=== PATIENT | male | born 1935 | race Caucasian/White ===

== ENCOUNTER 2016-09-22 09:15 | Inpatient (IN) | payer OTHER ==
[2016-09-10 11:53] LABS: BASOPHILS 0.3 %; BASOPHILS ABSOLUTE 0.03 10/3/uL (0.0-0.16); EOSINOPHILS 2.7 %; EOSINOPHILS ABSOLUTE 0.25 10/3/uL (0.0-0.53); HEMATOCRIT 44.6 % (40.0-51.0); HEMOGLOBIN 15.3 g/dL (13.6-17.8); IMMATURE GRANULOCYTES 0.3 %; IMMATURE GRANULOCYTES ABSOLUTE 0.03 10/3/uL (0.0-0.11); LYMPHOCYTES 21.6 %; LYMPHOCYTES ABSOLUTE 1.99 10/3/uL (0.67-4.30); MEAN CORPUS HGB CONC 34.3 g/dL (32.0-36.0); MEAN CORPUSCULAR HEMOGLOB 31.1 pg (26.0-34.0); MEAN CORPUSCULAR VOLUME 90.7 fL (80-100); MEAN PLATELET VOLUME 10.4 fL (9.2-13.0); MONOCYTES 6.3 %; MONOCYTES ABSOLUTE 0.58 10/3/uL (0.21-1.20); NEUTROPHILS 68.8 %; NEUTROPHILS ABSOLUTE 6.35 10/3/uL (2.02-8.40); PLATELET COUNT 270 10/3/uL (150-400); RBC DISTRIBUTION WIDTH 13.7 % (12.0-16.0); RED CELL COUNT 4.92 10/6/uL (4.7-6.1); WHITE BLOOD CELLS 9.2 10/3/uL (4.5-10.5)
[2016-09-10 11:57] LABS: MANUAL DIFF NO %
[2016-09-10 11:59] LABS: INTERNATIONAL NORMAL RATI 1.3 UNITS (-); PARTIAL THROMBO TIME 28.4 SEC (22.5-37.2); PROTIME (NOT ORD) 16.2 SEC (12.0-14.5)
[2016-09-10 12:04] LABS: ASCORBIC ACID (UR NOT ORDER) NEG (NEG); BILIRUBIN, URINE NEGATIVE (NEG); KETONE, URINE NEGATIVE (NEG); LEUKOCYTE ESTERASE(NOT OR NEG (NEG); WBC (NOT ORDERED) (RFLEX) 1 (0-5)
[2016-09-10 12:10] LABS: ALBUMIN 3.8 G/DL (3.5-5.0); ALKALINE PHOSPHATASE 90 U/L (45-117); BUN (BLOOD UREA NITROGEN) 20 MG/DL (6-23); CALCIUM, SERUM 8.9 MG/DL (8.5-10.4); CHLORIDE, SERUM 109 MMOL/L (96-112); CO2 (CARBON DIOXIDE) 27 MMOL/L (24-34); CREATININE 1.07 MG/DL (0.70-1.30); GFR AFRICAN AMERICAN 76 ML/MIN (>=60); GFR NON AFRICAN AMERICAN 66 ML/MIN (>=60); GLOBULIN 3.9 G/DL (2.5-4.1); GLUCOSE, SERUM 126 MG/DL (60-99); POTASSIUM, SERUM 3.9 MMOL/L (3.5-5.3); SGOT(AST) 12 U/L (5-40); SGPT(ALT) 13 U/L (5-65); SODIUM, SERUM 144 MMOL/L (135-148); TOTAL BILIRUBIN 0.6 MG/DL (0-1.2); TOTAL PROTEIN 7.7 G/DL (6.0-8.5)
--- NOTE | ~2016-09-22 | DS ---
Discharge Summary [facility] [address] [place]. [address] NAME: ROCK RODRIGUEZ : 37 STATUS : DIS IN PAT#: [id number] AGE: 81 ADM/REG DATE : 09/22/16 MR#: [id number] REPORT SERV DATE: 10/06/16 DICTATED BY: SOBEIDA CHENEY DATE: 10/05/16 REPORT STATUS : Draft TRANSCRIBED BY: BRAYAN DATE: 10/05/16 Data Collection from hospitalization DISCHARGE DIAGNOSES: 1. Left hip arthritis. 2. Asthma. CONSULTATIONS: None. PROCEDURES PERFORMED: Left total hip arthroplasty, 09/22/2016. PATHOLOGY: Left femoral head arthroplasty - changes consistent with degenerative joint disease. DISCHARGE MEDICATIONS: Aspirin 325 mg as needed, Colace 100 mg twice a day, Pepcid 20 mg twice a day, ferrous sulfate 300 mg with breakfast and supper, Theragran tablets one tablet with breakfast, Lopressor 25 mg twice a day, vitamin E one unit daily, Coumadin 5 mg as instructed, Tylenol 500 mg every six hours as needed, Mylanta 30 mL as needed, Dulcolax 15 mg as needed, milk of magnesia 30 mL as needed, Zofran 4 mg every four hours as needed, MiraLAX one packet twice a day as needed, Roxicodone 5-10 mg every four hours as needed. CONDITION AT DISCHARGE: Stable. DISPOSITION: The patient was discharged to [facility] at [place] on a regular diet with activities as instructed. He would follow up with Arnie Krause on 10/07/2016 and would follow up with on 11/04/2016. HOSPITAL COURSE: This is a 81-year-old man, who has left hip arthritis. Treatment options were discussed and it was elected to proceed with surgical intervention. He was admitted to the hospital at this time for further evaluation and treatment. Upon admission, he was taken to the operating room where he underwent the above-mentioned procedure. He tolerated this well. There were no complications. On postop day #1, he was up sitting in a bedside chair, FRANCESCA hose were in place. Metoprolol was continued. His blood pressure was controlled. He was evaluated by Occupational Therapy. On postop day #2, he continued to do well. INR level was 1.5. Discharge planning was performed on 09/25/2016. He continued to slowly progress. He had not been able to pass physical therapy. Discharge instructions were given. Due to his improved and stable condition, he was discharged to [facility] with the above-stated instructions. Information collected by: Joyce Garcia I submit the above information as my discharge summary. SUKUMAR/BRAYAN Sobeida Cheney M.D. Discharge Summary [address] [id number] [place]. [address] NAME: ROCK RODRIGUEZ : 37 STATUS : DIS IN PAT#: [id number] AGE: 81 ADM/REG DATE : 09/22/16 MR#: [id number] REPORT SERV DATE: 10/06/16 DICTATED BY: SOBEIDA CHENEY DATE: 10/05/16 REPORT STATUS : Draft TRANSCRIBED BY: BRAYAN DATE: 10/05/16 / [id number] CC: Paula Hankins M.D. [facility]
--- NOTE | ~2016-09-22 | OP ---
Record Of Operation [facility] [address] [place]. [address] NAME: ROCK RODRIGUEZ : 37 STATUS : ADM IN PAT#: [id number] AGE: 81 ADM/REG DATE : 09/22/16 MR#: [id number] REPORT SERV DATE: 09/22/16 DICTATED BY: SOBEIDA CHENEY DATE: 09/22/16 REPORT STATUS : Draft TRANSCRIBED BY: MODL DATE: 09/22/16 DATE OF PROCEDURE: 09/22/2016 PREOPERATIVE DIAGNOSIS: Left hip arthritis. POSTOPERATIVE DIAGNOSIS: Left hip arthritis. PROCEDURE PERFORMED: Left total hip arthroplasty. SURGEON: Sobeida Cheney M.D. COUPLES THERAPIST: Jacque Melgar. ANESTHESIA: General with local infusion. PROCEDURE IN DETAIL: The patient is clearly identified and after obtaining informed consent is brought to the operating room at [facility] where here the patient is induced under general anesthesia and subsequently placed in the left lateral decubitus position. This concluded, the thigh and flank are prepped and draped in the usual manner. A time-out procedure successfully performed and after registering the knee and marking the anatomy through an approximately 4.5 incision, the skin is divided. The fascial planes are divided. The lateral fascia then is divided. Hemostasis is obtained with electrocautery and a Charnley retractor is applied. The piriformis is identified, tagged, divided, and retracted over the sciatic nerve felt deep in the wound. At which point, the mini approach to the hip is formed with dividing the capsule in a mini approach with a cuff of tissues remaining at the femoral side to accomplish repair at the conclusion of the case. Dislocating the hip, end-stage arthritic changes are noted. The tissue surrounding the femoral neck are protected with the Hohmann retractor and the femoral neck cut is made according to preoperative templating. This concluded, the femoral head is removed. The acetabulum is exposed. The labral and fluvial tissues are removed and reaming is performed. Subsequently trialing with the appropriate trial, the permanent acetabular components placed with the [place] Sector. At which point, the acetabular trial component is then placed. The proximal femur is then addressed. The structures posteromedial to the greater trochanter are removed and this concluded the suzy-nishi canal finder lateralizer and reaming is performed. This concluded, broaching is performed and with excellent fit-fill and stability for the implant trialing is performed finding excellent leg length, stability, no impingement, good kickback, no push-pull, and the lesser trochanter palpably at the appropriate distance from the ischium when compared to preoperative templating. The trials were felt to be appropriate. These are all then removed and the permanent implants are then carefully applied uneventfully. Copious irrigation is then performed with same stability and findings noted after insertion. At which point, the joint then is carefully closed in layers including capsule, piriformis, lateral fascia, deep tissues, and skin. Aquacel dressing is applied and the patient is then allowed to awaken, is placed supine and is returned to the recovery room in stable condition having tolerated the procedure well. ESTIMATED BLOOD LOSS: 150 mL. Record Of Operation [facility] [id number] [facility] [place]. [address] NAME: ROCK RODRIGUEZ : 37 STATUS : ADM [facility]#: [id number] AGE: 81 ADM/REG DATE : 09/22/16 MR#: [id number] REPORT SERV DATE: 09/22/16 DICTATED BY: SOBEIDA CHENEY DATE: 09/22/16 REPORT STATUS : Draft TRANSCRIBED BY: BRAYAN DATE: 09/22/16 FLUIDS: 1100 mL. TOURNIQUET TIME: None. PATHOLOGY: Sent specimen. MICROBIOLOGY: None. COMPLICATIONS: None. SPONGE AND NEEDLE COUNTS: Reportedly correct. ANTIBIOTICS: Administered appropriately preoperatively and ordered to be discontinued within 23 hours. IMPLANTS: DePuy hip system, femur [place], size 6, high offset, +1.5/36 metal head. Acetabulum, [place] sector, size 56 with a +4 neutral liner, and no screws. MALCOLM/BRAYAN Sobeida Cheney M.D. / [id number] CC: Sobeida Cheney M.D.
[~2016-09-22 09:15] MED LIST: ACET500CAP PO; ASA5GR PO; LOP25 PO; MIRALAX POWDER1 PKT PO; VITE1000 PO
[2016-09-23 05:46] LABS: INTERNATIONAL NORMAL RATI 1.5 UNITS (-); PROTIME (NOT ORD) 17.8 SEC (12.0-14.5)
[2016-09-23 05:47] LABS: BUN (BLOOD UREA NITROGEN) 17 MG/DL (6-23); CALCIUM, SERUM 8.3 MG/DL (8.5-10.4); CHLORIDE, SERUM 102 MMOL/L (96-112); CO2 (CARBON DIOXIDE) 28 MMOL/L (24-34); CREATININE 1.02 MG/DL (0.70-1.30); GFR AFRICAN AMERICAN 81 ML/MIN (>=60); GFR NON AFRICAN AMERICAN 70 ML/MIN (>=60); GLUCOSE, SERUM 119 MG/DL (60-99); POTASSIUM, SERUM 4.4 MMOL/L (3.5-5.3); SODIUM, SERUM 141 MMOL/L (135-148)
[2016-09-24 04:25] LABS: HEMATOCRIT 34.6 % (40.0-51.0); HEMOGLOBIN 12.2 g/dL (13.6-17.8)
[2016-09-24 04:34] LABS: INTERNATIONAL NORMAL RATI 1.5 UNITS (-); PROTIME (NOT ORD) 18.4 SEC (12.0-14.5)
[2016-09-25 05:57] LABS: HEMATOCRIT 37.2 % (40.0-51.0); HEMOGLOBIN 12.5 g/dL (13.6-17.8)
[2016-09-25 06:07] LABS: INTERNATIONAL NORMAL RATI 1.6 UNITS (-); PROTIME (NOT ORD) 18.8 SEC (12.0-14.5)
== END 2016-09-25 15:32 | DRG 470 ==
LOC: SDC/OF 09:15 → PACU 13:14 → 3JRC 14:22
PROVIDERS: Orthopaedic Surgery
PROC: 0SRB02A Replacement of Left Hip Joint with Metal on Polyethylene Synthetic Substitute, Uncemented, Open Approach (ICD-10-PCS; principal; 2016-09-22 12:00)
DX: M16.12 Unilateral primary osteoarthritis, left hip (principal); I10 Essential (primary) hypertension; Z79.82 Long term (current) use of aspirin; Z79.899 Other long term (current) drug therapy
CPT/HCPCS: 36415; 71020; 72170; 80048; 80053; 81001; 85014; 85018; 85025; 85610; 85730; 86850; 86900; 86901; 87641; 88304; 88311; 93005; 97110-GP; 97116-GP; 97150-GP; 97161-GP; 97165-GO; 97535-GO; A9270-GY; C1776; J0690; J1885; J2274; J2405; J2710; J2795; J3010